=== PATIENT | male | born 1955 | race Caucasian/White ===

== ENCOUNTER 2016-03-29 05:05 | Emergency (ER) | payer MEDICARE ==
[2016-03-29 05:16] VITALS: BP 148/74
--- NOTE | 2016-03-29 06:27 | ER Document Report ---
ED Extremity Problem, Upper - General Mode of Arrival: Ambulatory Information source: Patient TRAVEL OUTSIDE OF THE [place] IN LAST 30 DAYS: No - HPI Patient complains to provider of: Left, Elbow, Forearm Onset: Other - 2 days ago Associated symptoms: Other - see above - General Chief Complaint: Arm Pain Stated Complaint: RIGHT ARM PAIN Notes: 60 year old male presents to the ED complaining of left arm pain that started 2 days ago. Patient explains that the pain starts in his left elbow and radiates into his lateral forearm. Patient states he has used Aspirin to no relief, but explains that Icy Hot and a heating pad have given him minimal relief. Patient states that he was waken from his sleep at 03:30 this morning in excruciating pain and was unable to straighten his arm out. Patient states that he it feels like there are "a couple of knots" in his left elbow. Patient admits to doing some light work on Thursday scraping paint off a car. Patient denies any injury to his left arm. Patient's orthopedist is Dr. Gillespie. (NOVA MORRIS) - Related Data Allergies/Adverse Reactions: promethazine HCl [From Phenergan] Allergy (Severe, Verified 03/29/16 05:09) Shortness of Breath Past Medical History - General Information source: Patient - Social History Smoking Status: Former Smoker Chew tobacco use (# tins/day): No Frequency of alcohol use: None Drug Abuse: None Family History: Reviewed & Not Pertinent Patient has suicidal ideation: No Patient has homicidal ideation: No - Past Medical History Cardiac Medical History: Reports: Hx Hypercholesterolemia, Hx Hypertension - 3 years-takes meds, Hx Heart Murmur - "comes and goes" Pulmonary Medical History: Reports: Hx Asthma - inhalers, Hx Bronchitis, Hx COPD , Hx Pneumonia - 10 yrs ago Neurological Medical History: Endocrine Medical History: Reports: Hx Diabetes Mellitus Type 2 Renal/ Medical History: Reports: Hx Benign Prostatic Hyperplasia, Hx Renal Insufficiency GI Medical History: Reports: Hx Gastroesophageal Reflux Disease - 16 years- takes meds Musculoskeltal Medical History: Reports Hx Arthritis - generalized Psychiatric Medical History: Reports: Hx Anxiety Traumatic Medical History: Reports: Hx Fractures - tailbone, lower back/ vertebrae Past Surgical History: Reports: Hx Cholecystectomy, Hx Herniorrhaphy - right inguinal hernia repair with mesh 2015, Hx Orthopedic Surgery - Right Knee replacement - Immunizations Hx Diphtheria, Pertussis, Tetanus Vaccination: Yes Review of Systems - Review of Systems Constitutional: No symptoms reported EENT: No symptoms reported Cardiovascular: No symptoms reported Respiratory: No symptoms reported Gastrointestinal: No symptoms reported Genitourinary: No symptoms reported Male Genitourinary: No symptoms reported Musculoskeletal: See HPI, Joint pain - left elbow and forearm, Other - difficulty extending his left arm Skin: No symptoms reported Hematologic/Lymphatic: No symptoms reported Neurological/Psychological: No symptoms reported -: Yes All other systems reviewed and negative Physical Exam - Vital signs Interpretation: Normal - General General appearance: Alert In distress: None - HEENT Head: Normocephalic, Atraumatic Eyes: Normal Extraocular movements intact: Yes Pupils: PERRL - Respiratory Respiratory status: No respiratory distress Breath sounds: Rhonchi - bilateral, Wheezing - bilateral - Cardiovascular Rhythm: Regular - Abdominal Inspection: Normal - Back Back: Normal - Extremities General upper extremity: No: Normal inspection - see elbow exam below General lower extremity: Normal inspection, Normal ROM Elbow: Tender - Left lateral humeral epicondyle. Pain is worsened if extending left wrist. Circumferential pressure around the left forearm enables patient to extend left wrist with minimal pain., Other - left lateral humeral epicondyle swelling. No: Normal - Neurological Neuro grossly intact: Yes - Psychological Associated symptoms: Normal affect, Normal mood - Skin Skin Temperature: Warm Skin Moisture: Dry Skin Color: Normal Course - Re-evaluation Re-evalutation: 03/29/16 07:30 Sling was placed on the left upper extremity by the nurse. It provide support for his arm and elbow amounts and to relax the muscles. He was again instructed to get a tennis elbow strap, use moist heat, but the extremity rest. He was mistakenly thinking that taking NSAIDs were okay, but he should not take Tylenol because of his renal insufficiency. He was also requesting pain medication. I pointed out that he takes 3-47.5 mg Percocets on a daily basis for many many months and should have plenty of medication left since the last time he filled his prescription. I have pointed out that the Percocets have Tylenol and Tylenol is not contraindicated and renal insufficiency. I further explained to him that the aspirin and Motrin he takes is contraindicated and would be harmful to his kidneys so he should stop taking drugs such as aspirin, Motrin, and Aleve. He should follow-up with his doctor to review these instructions and get clarification for his misunderstanding. (SWATHI SCOTT) - Vital Signs Vital signs: Temp Pulse Resp BP Pulse Ox 97.5 F 64 18 148/74 H 97 03/29/16 05:11 03/29/16 05:11 03/29/16 05:11 03/29/16 05:11 03/29/16 05:11 (NOVA MORRIS) (SWATHI SCOTT) Discharge - Discharge Clinical Impression: Epicondylitis, lateral humeral Qualifiers: Laterality: left Qualified Code(s): M77.12 - Lateral epicondylitis, left elbow Condition: Stable Disposition: HOME, SELF-CARE Additional Instructions: Tennis Elbow (Lateral Epicondylitis): You have lateral epicondylitis of the elbow, also called tennis elbow. This is a tendonitis at the point where the top-side forearm muscles attach to the outer side of the elbow. This is caused by repeated minor trauma or overuse , often during racquet sports or repetitive manual labor. In tennis, a faulty backhand stroke is usually the cause. Treat the tendonitis with antiinflammatory pain medication. Apply warmth to the area for 15 to 20 minutes, about 4 times a day. A wrap or "tennis elbow brace" that compresses the area may help. Steroid injections or surgery are occasionally required for severe cases that don't heal. Avoid or limit any activity that aggravates the pain. Stop racquet sports and golf for 4 to 6 weeks. Tennis players should make sure that they have a proper backhand after the injury heals. Return if you develop worsening pain, loss of mobility in the elbow, severe swelling, or numbness or weakness in the arm. USE THE SLING. TAKE THE MEDICATION PRESCRIBED--START THE PREDNISONE TOMORROW(THURSDAY). DRINK PLENTY OF WATER. GET A "TENNIS ELBOW" STRAP. CALL DR. GILLESPIE Thursday FOR AN APPOINTMENT. Prescriptions: Prednisone 10 mg PO TID #10 tablet Referrals: DORETHA ARECHIGA MD [Primary Care Provider] - Follow up as needed MADDIE GILLESPIE MD [ACTIVE STAFF] - 03/31/16 (call Thursday for an appointment) Scribe Attestation: 03/29/16 06:36 I personally performed the services described in the documentation, reviewed and edited the documentation which was dictated to the scribe in my presence, and it accurately records my words and actions. (SWATHI SCOTT) Scribe Documentation - Scribe Written by Christiano:: Christiano Palomo, 03/29/2016 06:57 acting as scribe for :: Vinita
[2016-03-29] MEDS ORDERED: PREDNISONE 20 MG TABLET PO ONE (06:32)
== END 2016-03-29 07:03 | disposition home or self-care (01) ==
LOC: ER 05:05
DX: M77.12 Lateral epicondylitis, left elbow (principal); M79.602 Pain in left arm; E78.00 Pure hypercholesterolemia, unspecified; I10 Essential (primary) hypertension; E11.9 Type 2 diabetes mellitus without complications; Z96.651 Presence of right artificial knee joint
CPT/HCPCS: 99283; A9270; J7512

== ENCOUNTER 2017-10-27 13:27 | Emergency (ER) | payer MEDICARE, MEDICAID ==
--- NOTE | 2017-10-27 14:52 | ER Document Report ---
ED Medical Screen (RME) - General Chief Complaint: Abdominal Pain Stated Complaint: VOMITING Time Seen by Provider: 10/27/17 14:11 TRAVEL OUTSIDE OF THE [place] IN LAST 30 DAYS: No - HPI Notes: 10/27/17 14:52 History of umbilical hernia coming a day for nausea vomiting diarrhea increased pain and hernia sac. - Related Data Allergies/Adverse Reactions: promethazine HCl [From Phenergan] Allergy (Severe, Verified 03/29/16 05:09) Shortness of Breath Past Medical History - Social History Chew tobacco use (# tins/day): No Frequency of alcohol use: None Drug Abuse: None - Past Medical History Cardiac Medical History: Reports: Hx Hypercholesterolemia, Hx Hypertension - 3 years-takes meds, Hx Heart Murmur - "comes and goes" Denies: Hx Atrial Fibrillation, Hx Congestive Heart Failure, Hx Coronary Artery Disease, Hx Heart Attack, Hx Peripheral Vascular Disease, Hx Pulmonary Embolism Pulmonary Medical History: Reports: Hx Asthma - inhalers, Hx Bronchitis, Hx COPD , Hx Pneumonia - 10 yrs ago Denies: Hx Respiratory Failure, Hx Sleep Apnea, Hx Tuberculosis Neurological Medical History: Endocrine Medical History: Reports: Hx Diabetes Mellitus Type 2. Denies: Hx Graves' Disease, Hx Hyperthyroidism, Hx Hypothyroidism Renal/ Medical History: Reports: Hx Benign Prostatic Hyperplasia, Hx Renal Insufficiency. Denies: Hx End Stage Renal Disease, Hx Kidney Stones, Hx Peritoneal Dialysis Malignancy Medical History: Denies Hx Lung Cancer GI Medical History: Reports: Hx Gastroesophageal Reflux Disease - 16 years- takes meds. Denies: Hx Crohn's Disease, Hx Hiatal Hernia, Hx Irritable Bowel, Hx Liver Failure - hepatitis c, Hx Pancreatitis, Hx Ulcer Musculoskeltal Medical History: Reports Hx Arthritis - generalized, Denies Hx Fibromyalgia, Denies Hx Muscular Dystrophy Psychiatric Medical History: Reports: Hx Anxiety Denies: Hx Bipolar Disorder, Hx Depression, Hx Post Traumatic Stress Disorder , Hx Schizophrenia Traumatic Medical History: Reports: Hx Fractures - tailbone, lower back/ vertebrae Past Surgical History: Reports: Hx Cholecystectomy, Hx Herniorrhaphy - right inguinal hernia repair with mesh 2015, Hx Orthopedic Surgery - Right Knee replacement. Denies: Hx Appendectomy, Hx Bowel Surgery, Hx Colostomy, Hx Coronary Artery Bypass Graft, Hx Gastric Bypass Surgery, Hx Pacemaker, Hx Tonsillectomy - Immunizations Hx Diphtheria, Pertussis, Tetanus Vaccination: Yes Review of Systems - Review of Systems Gastrointestinal: Abdominal pain, Diarrhea, Nausea Physical Exam - Vital signs Vitals: Temp Pulse Resp BP Pulse Ox 98.1 F 61 18 149/81 H 98 10/27/17 13:40 10/27/17 13:40 10/27/17 13:40 10/27/17 13:40 10/27/17 13:40 - Respiratory Respiratory status: No respiratory distress Chest status: Nontender Breath sounds: Normal Chest palpation: Normal Course - Vital Signs Vital signs: Temp Pulse Resp BP Pulse Ox 98.1 F 61 18 149/81 H 98 10/27/17 13:40 10/27/17 13:40 10/27/17 13:40 10/27/17 13:40 10/27/17 13:40 - Laboratory Result Diagrams: 10/27/17 14:38 10/27/17 14:38 Doctor's Discharge - Discharge Referrals: DORETHA ARECHIGA MD [Primary Care Provider] - Follow up as needed
[2017-10-27 14:58] LABS: ABSOLUTE EOSINOPHILS # (AUTO) 0.3 10^3/uL (0.0-0.6); ABSOLUTE LYMPHOCYTES (AUTO) 1.3 10^3/uL (0.5-4.7); ABSOLUTE MONOCYTES (AUTO) 0.5 10^3/uL (0.1-1.4); ABSOLUTE NEUT (AUTO) 2.9 10^3/uL (1.7-8.2); BASOPHILS % (AUTO) 0.5 % (0-2); EOSINOPHILS % (AUTO) 6.1 % (0-6); HEMATOCRIT 39.2 % (37.9-51.0); HEMOGLOBIN 13.7 g/dL (13.5-17.0); LYMPHOCYTES % (AUTO) 26.4 % (13-45); MEAN CORPUSCULAR HEMOGLOBIN 31.1 pg (27.0-33.4); MEAN CORPUSCULAR HGB CONC 34.9 g/dL (32.0-36.0); MEAN CORPUSCULAR VOLUME 89 fl (80-97); MONOCYTES % (AUTO) 9.3 % (3-13); PLATELET COUNT 170 10^3/uL (150-450); SEGMENTED NEUTROPHILS % (AUTO) 57.7 % (42-78); TOTAL CELLS COUNTED % (AUTO) 100 %
[2017-10-27 15:14] LABS: ANION GAP 12 (5-19); BLOOD UREA NITROGEN 25 mg/dL (7-20); CALCIUM 9.1 mg/dL (8.4-10.2); CARBON DIOXIDE 21 mmol/L (22-30); CHLORIDE 111 mmol/L (98-107); GLUCOSE 181 mg/dL (75-110); POTASSIUM 4.6 mmol/L (3.6-5.0); SODIUM 144.3 mmol/L (137-145)
[2017-10-27] MEDS ORDERED: HYDROMORPHONE HCL INJ/PF 2 MG/ML AMPULE IV ONE (15:32)
[2017-10-27] MEDS ORDERED: ONDANSETRON HCL INJ/PF 4 MG/2 ML SDV IV ONE (15:32)
[2017-10-27] MEDS ORDERED: NORMAL SALINE 1000 ML 1,000 ML IV ONE (15:33)
--- NOTE | 2017-10-27 15:36 | ER Document Report ---
ED General - General Chief Complaint: Abdominal Pain Stated Complaint: VOMITING Time Seen by Provider: 10/27/17 14:11 Mode of Arrival: Ambulatory Information source: Patient, Relative, Dr. Mahajan, [facility] Records Notes: 62-year-old male with hypertension, hyperlipidemia, COPD, chronic kidney disease , type 2 diabetes presents from his primary care physician's office with complaint of periumbilical abdominal pain that has been present intermittently for 1 month but worsened this morning. Patient has a known umbilical hernia for which she has seen his primary care physician for previously. He states it has never caused him this much pain. He describes it as a constant burning pain that is worse with standing and moving. Patient has had associated nausea and 2 episodes of vomiting this morning. His last bowel movement was this morning and denies any black or bloody stools. Patient has a surgical history of cholecystectomy and inguinal hernia repair. Patient recently went on a weeklong fishing trip and states that he did do a lot of heavy lifting at that time. He denies any sick contacts. TRAVEL OUTSIDE OF THE [place] IN LAST 30 DAYS: No - HPI Onset: Other - Patient has had mild periumbilical pain for 1 month with worsening of pain this morning Onset/Duration: Gradual, Persistent, Worse Quality of pain: Burning Severity: Moderate Associated symptoms: Chills, Nausea, Vomiting. denies: Chest pain, Nonproductive cough, Diarrhea, Fever, Weakness Exacerbated by: Movement, Walking Relieved by: Remaining still Similar symptoms previously: Yes Recently seen / treated by doctor: Yes - PCP this morning - Related Data Allergies/Adverse Reactions: promethazine HCl [From Phenergan] Allergy (Severe, Verified 03/29/16 05:09) Shortness of Breath Past Medical History - General Information source: Patient, Relative, Dr. Mahajan, [facility] Records, Outside Facility Records - Social History Smoking Status: Current Every Day Smoker Chew tobacco use (# tins/day): No Smoking Education Provided: Yes Frequency of alcohol use: None Drug Abuse: None Lives with: Spouse/Significant other Family History: Reviewed & Not Pertinent Patient has suicidal ideation: No Patient has homicidal ideation: No - Past Medical History Cardiac Medical History: Reports: Hx Hypercholesterolemia, Hx Hypertension - 3 years-takes meds, Hx Heart Murmur - "comes and goes" Denies: Hx Atrial Fibrillation, Hx Congestive Heart Failure, Hx Coronary Artery Disease, Hx Heart Attack, Hx Peripheral Vascular Disease, Hx Pulmonary Embolism Pulmonary Medical History: Reports: Hx Asthma - inhalers, Hx Bronchitis, Hx COPD , Hx Pneumonia - 10 yrs ago Denies: Hx Respiratory Failure, Hx Sleep Apnea, Hx Tuberculosis Neurological Medical History: Endocrine Medical History: Reports: Hx Diabetes Mellitus Type 2. Denies: Hx Graves' Disease, Hx Hyperthyroidism, Hx Hypothyroidism Renal/ Medical History: Reports: Hx Benign Prostatic Hyperplasia, Hx Renal Insufficiency. Denies: Hx End Stage Renal Disease, Hx Kidney Stones, Hx Peritoneal Dialysis Malignancy Medical History: Denies Hx Lung Cancer GI Medical History: Reports: Hx Gastroesophageal Reflux Disease - 16 years- takes meds. Denies: Hx Crohn's Disease, Hx Hiatal Hernia, Hx Irritable Bowel, Hx Liver Failure - hepatitis c, Hx Pancreatitis, Hx Ulcer Musculoskeletal Medical History: Reports Hx Arthritis - generalized, Denies Hx Fibromyalgia, Denies Hx Muscular Dystrophy Psychiatric Medical History: Reports: Hx Anxiety Denies: Hx Bipolar Disorder, Hx Depression, Hx Post Traumatic Stress Disorder , Hx Schizophrenia Traumatic Medical History: Reports: Hx Fractures - tailbone, lower back/ vertebrae Past Surgical History: Reports: Hx Cholecystectomy, Hx Herniorrhaphy - right inguinal hernia repair with mesh 2015, Hx Orthopedic Surgery - Right Knee replacement. Denies: Hx Appendectomy, Hx Bowel Surgery, Hx Colostomy, Hx Coronary Artery Bypass Graft, Hx Gastric Bypass Surgery, Hx Pacemaker, Hx Tonsillectomy - Immunizations Hx Diphtheria, Pertussis, Tetanus Vaccination: Yes Review of Systems - Review of Systems Notes: REVIEW OF SYSTEMS: CONSTITUTIONAL : Denies fever, sweats. Denies recent illness. Denies weight loss, recent hospitalizations. EENT: Denies visual changes, eye pain. Denies nasal or sinus congestion or discharge. Denies sore throat, oral lesions, difficulty swallowing. CARDIOVASCULAR: Denies chest pain. Denies palpitations. Denies lower extremity edema. RESPIRATORY: Denies cough, cold, or chest congestion. Denies shortness of breath, wheezing. GASTROINTESTINAL: Denies diarrhea. Denies blood in vomitus, stools, or per rectum. Denies black, tarry stools. Denies constipation. GENITOURINARY: Denies difficulty urinating, painful urination, frequency, blood in urine, or vaginal discharge. MUSCULOSKELETAL: Denies back or neck pain or stiffness. Denies joint pain or swelling. SKIN: Denies rash, lesions or sores. HEMATOLOGIC : Denies easy bruising or bleeding. LYMPHATIC: Denies swollen glands. NEUROLOGICAL: Denies confusion or altered mental status. Denies passing out or loss of consciousness. Denies dizziness or lightheadedness. Denies headache. Denies weakness or paralysis. Denies problems difficulty with ambulation, slurred speech. Denies sensory loss, numbness, or tingling. Denies seizures. PSYCHIATRIC: Denies anxiety or stress. Denies depression, suicidal ideation, or homicidal ideation. Denies visual or auditory hallucinations. Physical Exam - Vital signs Vitals: Temp Pulse Resp BP Pulse Ox 98.1 F 61 18 149/81 H 98 10/27/17 13:40 10/27/17 13:40 10/27/17 13:40 10/27/17 13:40 10/27/17 13:40 Interpretation: Hypertensive. No: Febrile - Notes Notes: PHYSICAL EXAMINATION: GENERAL: Well-appearing, well-nourished and in no acute distress. HEAD: Atraumatic, normocephalic. EYES: Pupils equal round and reactive to light, extraocular movements intact, sclera anicteric, conjunctiva are normal. ENT: Nares patent, oropharynx clear without exudates. Moist mucous membranes. NECK: Normal range of motion, supple without lymphadenopathy LUNGS: Breath sounds clear to auscultation bilaterally and equal. No wheezes rales or rhonchi. HEART: Regular rate and rhythm without murmurs ABDOMEN: Abdominal distention, tenderness to palpation in the periumbilical region. Small reducible umbilical hernia. Hyperactive bowel sounds. Musculoskeletal: Normal range of motion, no pitting or edema. No cyanosis. NEUROLOGICAL: Cranial nerves grossly intact. Normal speech, normal gait. Normal sensory, motor exams PSYCH: Normal mood, normal affect. SKIN: Warm, Dry, normal turgor, no rashes or lesions noted. Course - Re-evaluation Re-evalutation: Laboratory 10/27/17 10/27/17 10/27/17 14:38 14:38 14:38 WBC 5.0 RBC 4.40 Hgb 13.7 Hct 39.2 MCV 89 MCH 31.1 MCHC 34.9 RDW 14.0 Plt Count 170 Seg Neutrophils % 57.7 Lymphocytes % 26.4 Monocytes % 9.3 Eosinophils % 6.1 H Basophils % 0.5 Absolute Neutrophils 2.9 Absolute Lymphocytes 1.3 Absolute Monocytes 0.5 Absolute Eosinophils 0.3 Absolute Basophils 0.0 Sodium 144.3 Potassium 4.6 Chloride 111 H Carbon Dioxide 21 L Anion Gap 12 BUN 25 H Creatinine 1.99 H Est GFR ( Amer) 41 L Est GFR (Non-Af Amer) 34 L Glucose 181 H Lactic Acid 1.2 Calcium 9.1 Abdomen/Pelvis CT 10/27/17 14:17 IMPRESSION: 1. Mild wall thickening in the sigmoid colon may reflect colitis. Nonspecific. Some of this could be artifact. 2. Wall thickening in the distal esophagus, nonspecific. Correlate with symptoms. 3. Splenomegaly. 10/28/17 15:12 62-year-old male with hypertension, hyperlipidemia, COPD, chronic kidney disease , type 2 diabetes presents from his primary care physician's office with complaint of periumbilical abdominal pain that has been present intermittently for 1 month but worsened this morning. Patient has a known umbilical hernia for which she has seen his primary care physician for previously. He states it has never caused him this much pain. He describes it as a constant burning pain that is worse with standing and moving. Patient has had associated nausea and 2 episodes of vomiting this morning. His last bowel movement was this morning and denies any black or bloody stools. Patient has a surgical history of cholecystectomy and inguinal hernia repair. Patient recently went on a weeklong fishing trip and states that he did do a lot of heavy lifting at that time. He denies any sick contacts. Patient was seen by myself upon arrival. Vital signs were reviewed. Patient is afebrile, normotensive and not hypoxic. Patient does not appear toxic or dehydrated. They are in no acute distress. Previous medical records and nursing notes reviewed. Patient has a an essentially benign abdominal M. CBC, BMP, lactic acid all within normal limits. CT consistent with colitis and not strangulated or incarcerated hernia. I did recommend clear fluids for the next 24 hours. I did provide the patient antibiotics although I do not believe this is an infectious source of colitis. I did ask him to hold off on the antibiotics for 48 hours to see if pain improved. Patient did receive IV fluids, Zofran, Dilaudid during his ED course. He reports a great improvement of pain prior to discharge. He is tolerating fluids prior to discharge. Patient provided the opportunity to ask questions, and express concerns. Discharge instructions discussed. Patient is agreeable with discharge home. Return indications explained and discussed with the patient who displays understanding. Patient encouraged to return to the emergency department immediately with any concerns. After performing a Medical Screening Examination, I estimate there is LOW risk for ACUTE APPENDICITIS, BOWEL OBSTRUCTION, ACUTE CHOLECYSTITIS, PERFORATED DIVERTICULITIS, INCARCERATED HERNIA, PANCREATITIS, thus I consider the discharge disposition reasonable. Also , there is no evidence or peritonitis, sepsis, or toxicity. I have reevaluated this patient multiple times and no significant life threatening changes are noted. The patient and I have discussed the diagnosis and risks, and we agree with discharging home with close follow-up with the understanding that symptoms and presentations can change. We also discussed returning to the Emergency Department immediately if new or worsening symptoms occur. We have discussed the symptoms which are most concerning (e.g., bloody stool, fever, changing or worsening pain, intractable vomiting - standard verbal up date) that necessitate immediate return. - Vital Signs Vital signs: Temp Pulse Resp BP Pulse Ox 97.7 F 59 L 18 156/116 H 98 10/27/17 19:18 10/27/17 19:18 10/27/17 19:18 10/27/17 19:18 10/27/17 19:18 - Laboratory Result Diagrams: 10/27/17 14:38 10/27/17 14:38 Laboratory results interpreted by me: 10/27/17 10/27/17 14:38 14:38 Eosinophils % 6.1 H Chloride 111 H Carbon Dioxide 21 L BUN 25 H Creatinine 1.99 H Est GFR ( Amer) 41 L Est GFR (Non-Af Amer) 34 L Glucose 181 H - Diagnostic Test Radiology reviewed: Image reviewed, Reports reviewed Discharge - Discharge Clinical Impression: Colitis Abdominal pain Qualifiers: Abdominal location: periumbilical Qualified Code(s): R10.33 - Periumbilical pain Umbilical hernia Qualifiers: Obstruction and gangrene presence: without obstruction or gangrene Qualified Code(s): K42.9 - Umbilical hernia without obstruction or gangrene CKD (chronic kidney disease) Qualifiers: Chronic kidney disease stage: unspecified stage Qualified Code(s): N18.9 - Chronic kidney disease, unspecified Condition: Good Disposition: HOME, SELF-CARE Instructions: Abdominal Pain ([facility]), Colitis, Nonspecific ([facility]), Nausea or Vomiting, Nonspecific ([facility]), Umbilical Hernia ([facility]) Additional Instructions: Colitis, Nonspecific Colitis is an inflammatory disease of the large intestine which affects the lining of the bowel. The cause is uncertain, though it is often caused by an infection. In some cases, the symptoms resolve and can return again in the future. Colitis is characterized by abdominal pain, often nausea and vomiting, and either diarrhea or difficulty with bowel movements. Sometimes blood will be present in the bowel movements. Fever is often present as well. Milder cases of colitis can be managed as an outpatient with medications for nausea and vomiting and pain, oral fluid therapy, and perhaps antibiotics, if a bacterial origin is suspected. Antidiarrhea medicine should usually be avoided in colitis. If you have increasing abdominal pain, repeated vomiting, fever, rectal bleeding, or worsening diarrhea, you should return for re-evaluation. Prescriptions: Ciprofloxacin HCl [Cipro 500 mg Tablet] 500 mg PO BID #20 tablet Hydrocodone/Acetaminophen [Tracy 5-325 mg Tablet] 1 tab PO Q6H #10 tablet Metoclopramide HCl [Reglan 10 mg Tablet] 1 tab PO Q8H PRN #10 tablet PRN Reason: Metronidazole [Flagyl 500 mg Tablet] 500 mg PO BID #14 tablet Forms: Elevated Blood Pressure Referrals: DORETHA ARECHIGA MD [Primary Care Provider] - Follow up as needed
--- NOTE | 2017-10-27 17:48 | RADIOLOGY REPORT (SQ) ---
EXAM DESCRIPTION: CT ABD/PELVIS ORAL ONLY COMPLETED DATE/TIME: 10/27/2017 5:34 pm REASON FOR STUDY: umbilical hernia pain COMPARISON: None. TECHNIQUE: CT scan of the abdomen and pelvis performed with oral contrast and no intravenous contras t. Images reviewed with lung, soft tissue, and bone windows. Reconstructed coronal and sagittal MPR i mages reviewed. All images stored on PACS. All CT scanners at this facility use dose modulation, iterative reconstruction, and/or weight based d osing when appropriate to reduce radiation dose to as low as reasonably achievable (ALARA). [facility]: Dose Right [facility]: CareDose [facility]: Dose Right [facility]: Teradose 4D [facility]: [employer] RADIATION DOSE: CT Rad equipment meets quality standard of care and radiation dose reduction techniq ues were employed. CTDIvol: 15.9 mGy. DLP: 879 mGy-cm.mGy. LIMITATIONS: None. FINDINGS: LOWER CHEST: Slightly thickened appearance of the distal thoracic esophagus with small hia janice hernia. No acute or suspicious lung base changes. NON-CONTRASTED LIVER, SPLEEN, ADRENALS: Generally unremarkable liver. Calcified granulomas in the sp lilliam, which is enlarged. Just at 15 cm craniocaudal. No adrenal mass. PANCREAS: No masses. No peripancreatic inflammatory changes. GALLBLADDER: Surgically absent. RIGHT KIDNEY AND URETER: No solid masses. No significant calcification. No hydronephrosis or hydroure ter. LEFT KIDNEY AND URETER: No solid masses. No significant calcification. No hydronephrosis or hydrouret er. AORTA AND RETROPERITONEUM: No aneurysm. No retroperitoneal masses or adenopathy. BOWEL AND PERITONEAL CAVITY: Mild wall thickening in the sigmoid colon. Potentially artifact. No re gional diverticulosis. No associated inflammatory fat stranding or fluid. No evidence of mechanical bowel obstruction. No ascites or abnormal gas. APPENDIX: Normal. PELVIS, BLADDER, AND ABDOMINAL WALL: No abnormal pelvic masses. No bowel containing abdominal wall he rnias. Minimal fat containing periumbilical hernia. No abdominal wall mass. Bladder unremarkable. BONES: No significant findings. OTHER: No other significant finding. IMPRESSION: 1. Mild wall thickening in the sigmoid colon may reflect colitis. Nonspecific. Some o f this could be artifact. 2. Wall thickening in the distal esophagus, nonspecific. Correlate with symptoms. 3. Splenomegaly. TECHNICAL DOCUMENTATION: JOB ID: [id number] Quality ID # [id number]: Final reports with documentation of one or more dose reduction techniques (e.g., Au tomated exposure control, adjustment of the mA and/or kV according to patient size, use of iterative reconstruction technique) 2010 [employer]- All Rights Reserved Reading location - IP/workstation name: [email or web address]
[2017-10-27] MEDS ORDERED: KETOROLAC TROMETHAMINE INJ/PF 30 MG/1 ML SDV IV ONE (18:00)
[2017-10-27 19:19] VITALS: BP 156/116
== END 2017-10-27 19:19 | disposition home or self-care (01) ==
LOC: ER 13:27
DX: K52.9 Noninfective gastroenteritis and colitis, unspecified (principal); K42.9 Umbilical hernia without obstruction or gangrene; R10.33 Periumbilical pain; I12.9 Hypertensive chronic kidney disease with stage 1 through stage 4 chronic kidney disease, or unspecified chronic kidney disease; N18.9 Chronic kidney disease, unspecified; E78.5 Hyperlipidemia, unspecified; J44.9 Chronic obstructive pulmonary disease, unspecified; E11.9 Type 2 diabetes mellitus without complications; R11.2 Nausea with vomiting, unspecified; F17.200 Nicotine dependence, unspecified, uncomplicated
CPT/HCPCS: 99284; 96361; 96374; 96375; 36415; 85025; 80048; 83605; 74176; J1170; J2405; J7030

== ENCOUNTER 2018-03-18 08:59 | Emergency (ER) | payer MEDICARE, MEDICAID ==
--- NOTE | 2018-03-18 09:17 | ER Document Report ---
HPI - HPI Patient complains to provider of: r elbow injury Time Seen by Provider: 03/18/18 09:11 Onset: Other - 2 days Onset/Duration: Persistent Quality of pain: Achy Pain Level: 3 Context: Patient states that he was at work and his hand slipped causing his elbow to fall back into the jam of a door. Patient complains of persistent right elbow tenderness with swelling. Patient complains of pain with range of motion. Associated Symptoms: Other - r elbow injury Exacerbated by: Movement Relieved by: Denies Similar symptoms previously: No Recently seen / treated by doctor: No - ROS ROS below otherwise negative: Yes Systems Reviewed and Negative: Yes All other systems reviewed and negative - CONSTITUTIONAL Constitutional: DENIES: Fever - NEURO Neurology: DENIES: Weakness - GASTROINTESTINAL Gastrointestinal: DENIES: Nausea - REPRODUCTIVE Reproductive: DENIES: : - MUSCULOSKELETAL Musculoskeletal: REPORTS: Extremity pain, Swelling - DERM Skin Color: Normal Skin Problems: None Past Medical History - General Information source: Patient - Social History Smoking Status: Current Every Day Smoker Smoking Education Provided: Yes Frequency of alcohol use: None Drug Abuse: None Occupation: none Family History: Reviewed & Not Pertinent - Past Medical History Cardiac Medical History: Reports: Hx Hypercholesterolemia, Hx Hypertension - 3 years-takes meds, Hx Heart Murmur - "comes and goes" Pulmonary Medical History: Reports: Hx Asthma - inhalers, Hx Bronchitis, Hx COPD, Hx Pneumonia - 10 yrs ago Neurological Medical History: Endocrine Medical History: Reports: Hx Diabetes Mellitus Type 2 Renal/ Medical History: Reports: Hx Benign Prostatic Hyperplasia, Hx Renal Insufficiency. Denies: Hx End Stage Renal Disease, Hx Kidney Stones, Hx Peritoneal Dialysis Malignancy Medical History: Denies Hx Lung Cancer GI Medical History: Reports: Hx Gastroesophageal Reflux Disease - 16 years-takes meds Musculoskeletal Medical History: Reports Hx Arthritis - generalized Psychiatric Medical History: Reports: Hx Anxiety Traumatic Medical History: Reports: Hx Fractures - tailbone, lower back/vertebrae Past Surgical History: Reports: Hx Cholecystectomy, Hx Herniorrhaphy - right inguinal hernia repair with mesh 2015, Hx Orthopedic Surgery - Right Knee replacement - Immunizations Hx Diphtheria, Pertussis, Tetanus Vaccination: Yes Vertical Provider Document - CONSTITUTIONAL Agree With Documented VS: Yes Exam Limitations: No Limitations General Appearance: WD/WN, No Apparent Distress - INFECTION CONTROL TRAVEL OUTSIDE OF THE [place] IN LAST 30 DAYS: No - HEENT HEENT: Atraumatic, Normocephalic - NECK Neck: Normal Inspection - RESPIRATORY Respiratory: No Respiratory Distress - CARDIOVASCULAR Pulses: Normal: Radial - MUSCULOSKELETAL/EXTREMETIES Musculoskeletal/Extremeties: MAEW, FROM, Tender - Right elbow tenderness over radial head, no edema or deformity, No Edema. negative: Eccymosis - NEURO Level of Consciousness: Awake, Alert, Appropriate Motor/Sensory: No Motor Deficit - DERM Integumentary: Warm, Dry, No Rash Course - Vital Signs Vital signs: Temp Pulse Resp BP Pulse Ox 97.5 F 68 18 165/83 H 98 03/18/18 09:10 03/18/18 09:10 03/18/18 09:10 03/18/18 09:10 03/18/18 09:10 - Diagnostic Test Radiology reviewed: Image reviewed, Reports reviewed Procedures - Immobilization Right Elbow Pre-Proc Neuro Vasc Exam: Normal Immobilizer type: Long arm posterior, Sling Performed by: PCT Post-Proc Neuro Vasc Exam: Normal Alignment checked and good: Yes Discharge - Discharge Clinical Impression: Radial head fracture Qualifiers: Encounter type: initial encounter Fracture type: closed Fracture alignment: nondisplaced Laterality: right Qualified Code(s): S52.124A - Nondisplaced fracture of head of right radius, initial encounter for closed fracture Condition: Stable Disposition: HOME, SELF-CARE Instructions: Ice & Elevation ([facility]), Radial Head Fracture ([facility]), Sling to be Used ([facility]), Splint Precautions ([facility]) Additional Instructions: Return immediately for any new or worsening symptoms Followup with your primary care provider, call tomorrow to make a followup appointment Follow-up with orthopedics for further evaluation, call today for an appointment Forms: Smoking Cessation Education Referrals: DORETHA ARECHIGA MD [Primary Care Provider] - Follow up as needed [facility] [Provider Group] - Follow up tomorrow
--- NOTE | 2018-03-18 10:30 | RADIOLOGY REPORT (SQ) ---
EXAM DESCRIPTION: ELBOW RIGHT OVER 2 VIEWS COMPLETED DATE/TIME: 03/18/2018 10:22 am REASON FOR STUDY: fall COMPARISON: None. NUMBER OF VIEWS: Four views. TECHNIQUE: AP, lateral, and both oblique radiographic images acquired of the right elbow. LIMITATIONS: None. FINDINGS: MINERALIZATION: Normal. BONES: No fracture identified. JOINT: Joint effusion. SOFT TISSUES: No foreign body. OTHER: No other significant finding. IMPRESSION: Joint effusion. Suspect occult radial head fracture. TECHNICAL DOCUMENTATION: JOB ID: [id number] [employer]- All Rights Reserved Reading location - IP/workstation name: [email or web address]
[2018-03-18 11:24] VITALS: BP 161/93
== END 2018-03-18 11:24 | disposition home or self-care (01) ==
LOC: ER 08:59
DX: S52.124A Nondisplaced fracture of head of right radius, initial encounter for closed fracture (principal); W22.09XA Striking against other stationary object, initial encounter; Y99.0 Civilian activity done for income or pay; F17.200 Nicotine dependence, unspecified, uncomplicated; E78.00 Pure hypercholesterolemia, unspecified; I10 Essential (primary) hypertension; E11.9 Type 2 diabetes mellitus without complications; Z90.49 Acquired absence of other specified parts of digestive tract; Z96.651 Presence of right artificial knee joint
CPT/HCPCS: 99283

== ENCOUNTER 2018-09-22 12:44 | Day surgery (SDC) | payer MEDICARE, MEDICAID ==
[2018-09-20 09:06] LABS: HEMATOCRIT 36.3 % (37.9-51.0); HEMOGLOBIN 12.5 g/dL (13.5-17.0); MEAN CORPUSCULAR HEMOGLOBIN 31.7 pg (27.0-33.4); MEAN CORPUSCULAR HGB CONC 34.4 g/dL (32.0-36.0); MEAN CORPUSCULAR VOLUME 92 fl (80-97); PLATELET COUNT 137 10^3/uL (150-450); RED BLOOD COUNT 3.94 10^6/uL (4.35-5.55); RED CELL DISTRIBUTION WIDTH 13.4 % (11.5-14.0); WHITE BLOOD COUNT 5.5 10^3/uL (4.0-10.5)
[2018-09-20 09:37] LABS: BLOOD UREA NITROGEN 36 mg/dL (7-20); CALCIUM 8.8 mg/dL (8.4-10.2); GLUCOSE 168 mg/dL (75-110); POTASSIUM 5.7 mmol/L (3.6-5.0)
[2018-09-20 09:42] LABS: ANION GAP 6 (5-19); CARBON DIOXIDE 22 mmol/L (22-30); CHLORIDE 112 mmol/L (98-107); SODIUM 139.7 mmol/L (137-145)
--- NOTE | 2018-09-21 18:37 | EKG REPORT ---
SEVERITY:- OTHERWISE NORMAL ECG - SINUS RHYTHM LEFT AXIS DEVIATION : Confirmed by: Alexey Webb MD 21-Sep-2018 18:37:13
[~2018-09-22 12:44] MED LIST: ACETAMINOPHEN 325 MG TABLET PO PRN; ALBUTEROL SULFATE 0.083% NEB 2.5 MG/3 ML AMPUL NEB PRN; CEFAZOLIN 1 GM/D5W RTU 1 GM/50 ML RTUPB IV ONE; CEFAZOLIN 1 GM/D5W RTU 1 GM/50 ML RTUPB IV PRN; GLYCOPYRROLATE 1 MG/5 ML VIAL ONE; KETOROLAC TROMETHAMINE 60 MG/2 ML SDV ONE; LACTATED RINGERS 1000 ML IV PRN; LIDOCAINE 0.5% INJ-PF (5 MG/ML) 50 ML SDV SUBCUT PRN; LIDOCAINE 2% INJ-PF (20 MG/ML) 2 ML AMPUL ONE; METOCLOPRAMIDE HCL INJ/PF 10 MG/2 ML SDV ONE; NEOSTIGMINE METHYLSULFATE 10 MG/10 ML VIAL ONE; ONDANSETRON HCL INJ/PF 4 MG/2 ML SDV ONE; PHENYLEPHRINE HCL INJ/PF 10 MG/1 ML SDV ONE; PROPOFOL INJ 200 MG/20 ML VIAL IV ONE; ROCURONIUM BROMIDE INJ 50 MG/5 ML VIAL IV ONE; SUCCINYLCHOLINE CHLORIDE INJ 200 MG/10 ML VIAL ONE
[2018-09-22] MEDS ORDERED: MIDAZOLAM 2 MG/2 ML INJ ONE (13:13)
[2018-09-22] MEDS ORDERED: SUGAMMADEX SODIUM 200 MG/2 ML SDV IV ONE (13:13)
[2018-09-22] MEDS ORDERED: FENTANYL CITRATE INJ/PF 250 MCG/5 ML AMPULE ONE (13:13)
[2018-09-22] MEDS ORDERED: LIDOCAINE 2% INJ-PF (100 MG/5 ML) SYRINGE ONE (13:13)
[2018-09-22] MEDS ORDERED: ONDANSETRON HCL INJ/PF 4 MG/2 ML SDV ONE (13:13)
[2018-09-22] MEDS ORDERED: DEXAMETHASONE SOD PHOSPHATE INJ 4 MG/1 ML VIAL ONE (13:13)
[2018-09-22] MEDS ORDERED: BUPIVACAINE HCL 0.25 % INJ/PF (2.5 MG/1 ML) 30 ML VIAL ONE (14:42)
[2018-09-22] MEDS ORDERED: BUPIVACAINE HCL 0.25 % INJ/PF (2.5 MG/1 ML) 30 ML VIAL INJ ONE (15:48)
[2018-09-22] MEDS ORDERED: MORPHINE SULFATE 10 MG/ML INJ IV PRN (16:55)
[2018-09-22] MEDS ORDERED: FENTANYL CITRATE INJ/PF 100 MCG/2 ML AMPUL IV PRN ×3 (16:55)
[2018-09-22] MEDS ORDERED: DIPHENHYDRAMINE HCL 50 MG/ML VIAL IV PRN (16:55)
[2018-09-22] MEDS ORDERED: ONDANSETRON HCL INJ/PF 4 MG/2 ML SDV IV PRN (16:55)
[2018-09-22] MEDS ORDERED: MEPERIDINE HCL/PF INJ 25 MG/1 ML DISP.SYRIN IV PRN (16:55)
--- NOTE | 2018-09-22 17:19 | Discharge Summary ---
Discharge Summary (SDC) - Discharge Final Diagnosis: umbilical hernia Date of Surgery: 09/22/18 Discharge Date: 09/22/18 Condition: Good Treatment or Instructions: [facility] [address], [place] [address] Discharge Instructions: Laparoscopic Surgery 1. General Information: a. DO NOT DRIVE a car or operate dangerous machinery for 3-4 days or while taking narcotic pain pills. b. DO NOT consume alcohol, tranquilizers, sleeping medications or any non- prescribed medications for 24 hours unless approved by your doctor or as long as taking narcotic prescription medications. c. DO NOT make important decisions or sign any important papers for the first 24 hours after surgery. d. When discharged home the same day of surgery have a responsible person with you for the first night. 2. Activity Restrictions: 6 weeks. a. NO heavy lifting, straining abdominal muscles, bending over a lot, yard work, house work, or sports for [address] NOT drive for 3-4 days. c. It is fine to go for walks, up and down steps, ride in a car. d. Elevate your head when sleeping/resting. 3. Treatment: a. You may shower 24 hours after surgery, no baths or swimming for 2 weeks. Remove band-aids or dressings before shower but leave paper strips (steri- strips) on the skin to fall off on their own. If still on at postoperative visit they will be removed then. b. Drainage of fluid or blood is not unusual from an incision. If occurs, you can clean with peroxide and cotton ball daily and cover with dry gauze until the wound seals. c. If a lot of bleeding occurs, you can hold pressure with a gauze or cloth over the site for 10 minutes and it will usually stop. If bleeding continues you will need to call for possible evaluation in office or emergency room. 4. Medications: a. _Percocet_ may be taken for pain as needed, one tablets every 6 hours. Stop the narcotic when able since you cannot take it and drive, and they cause constipation. You may switch to plain Tylenol, Advil or Aleve as you transition from the narcotic. Many adults find good pain relief with Advil 600-800 mg three times a day with meals. This can cause indigestion, ulcers, and kidney problems with long-term use. b. You should resume all normal medications unless a change is specified by your doctors. Please take a stool softener, such as colace, with the Percocet. 5. Diet: Begin with clear liquids and may progress to your normal diet if not nauseated. No high fat, high protein foods the day of surgery. 6. The following may occur after laparoscopic surgery: a. Shoulder or upper back ache from retained gas that should resolve in 1-2 days b. Soreness and bruising at incision sites will resolve with time. c. Scrotal swelling (labia in women) and bruising is often seen after hernia surgery. d. Sore throat e. Fatigue may last days to weeks. f. Difficulty urinating may occur and may need to come into emergency room for urinary catheter placement. 7. Notify Physician If: a. Worsening or pain not improved with pain medication b. Persistent nausea and vomiting c. Fever above 101 d. Persistent bleeding or swelling at operative site e. Unable to urinate and uncomfortable bladder 6-8 hours after surgery 8..Follow Up Care: a. Schedule a follow up appointment with your doctor for 2 weeks. In the event of any postoperative problems or questions or you may call the office during business hours or the On-Call physician evenings and weekends at [facility]. [facility] I understand the instructions for my postoperative care as described above and a copy has been given to me. Patient/Significant Other Witness Date Prescriptions: Oxycodone HCl/Acetaminophen [Percocet 5-325 mg Tablet] 1 tab PO ASDIR PRN #20 tab PRN Reason: Referrals: DORETHA ARECHIGA MD [Primary Care Provider] - Discharge Diet: Other (Comments) - clear liquids then progress Discharge Activity: Balance Activity w/Rest, No Lifting Over 10 Pounds, No Lifting/Push/Pulling, Walk Frequently Report the Following to Your Physician Immediately: Vomiting, Increase in Pain, Fever over 101 Degrees, Unusual Bleeding, Redness, Swelling, Warmth, Increased Soreness, Drainage-Foul Smelling
[2018-09-22] MEDS ORDERED: IPRATROPIUM/ALBUTEROL 0.5-2.5 MG/3 ML AMPUL NEB ONE (17:26)
[2018-09-22] MEDS ORDERED: HYDROMORPHONE HCL INJ/PF 2 MG/ML AMPULE ONE (17:26)
--- NOTE | 2018-09-22 17:33 | Operative Report ---
Operative Report DATE OF SURGERY: 09/22/18 PREOPERATIVE DIAGNOSIS: Ventral wall hernia POSTOPERATIVE DIAGNOSIS: Ventral wall hernias x2 one at umbilicus, one supraumbilical. Intra-abdominal adhesions OPERATION: 1 Extensive scopic lysis of adhesions. 2. Ventral wall he rniorrhaphy x2, with ventralite ST mesh 4.5 inch diameter SURGEON: PERICO DECKER 1ST PATRON ATTENDANT: JULIO CRUZ ANESTHESIA: GA TISSUE REMOVED OR ALTERED: Intra-abdominal fat COMPLICATIONS: None ESTIMATED BLOOD LOSS: 150 cc INTRAOPERATIVE FINDINGS: See below PROCEDURE: Patient was seen in the preop holding area where he was evaluated. He was found to have an elevated creatinine close to 3, baseline previously 2; BUN elevated as well; discussion was had with anesthesiologist, as well as Dr. Solorio probation worker. We agreed to proceed with appropriate levels of hydration, and follow-up chronic renal insufficiency with nephrology. Patient was taken to the main operating room where general anesthesia was induced. Arms were abducted, and the abdomen was exposed, prepped and draped in sterile fashion. Surgical plan surgical timeout were conducted. Markings were made on the skin for planned 3 port laparoscopic surgery, left upper quadrant left lower quadrant and right mid lateral field. Skin was anesthetized with 1% lidocaine. A left upper quadrant stab was made with a 15 blade, Veress needle inserted the peritoneal cavity pneumoperitoneum was established. Veress needle was removed, and a 5 mm ports inserted and a 5 mm flexible endoscope was inserted and under direct visualization 2 additional 5 mm ports were placed again one in the left lower quadrant and one in the right mid field Visualization of the peritoneal cavity revealed extensive adhesions between the greater omentum and the anterior abdominal wall. These were taken down using combination of blunt and primarily dissection. Visualization was excellent. There was no evidence of small bowel attached to the anterior abdominal wall. Once all of the adhesions were taken down, including a small portion of the falciform ligament, we are able to appreciate the hernias of the abdominal wall which included to each approximately a centimeter and a half in diameter one at the umbilicus and a second just above the umbilicus. Fat-containing within the supraumbilical hernia was debrided with graspers. We now closed both of the small hernias with a large [id number] #1 PDS suture passed percutaneously by making a small delmis in the skin tween the internal hernias just at the superior edge of the umbilicus, and using the percutaneous needle passer, placing the suture into position. Pneumoperitoneum was decompressed, and the knots secured. We now brought onto the field a non- 4.5 cm mesh, ventral light ST, affixed it with 0 PDS sutures at the 12, 3, 6, 9:00 positions moistened, rolled it up and brought up to the anterior abdominal wall. We can affixing the mesh to the anterior abdominal wall at the 12 and 6:00 positions using the disposable suture passer when it was apparent that there was persisting bleeding coming down from the left lower quadrant port site. What to our surprise, there was a rather generous collection of blood in the peritoneal cavity. It was apparent t hat there was bleeding from our site, likely the inferior epigastric artery. The port in the left lower quadrant was removed, and using three #1 PDS sutures, we were able to ligate the artery and all the mechanical bleeding. We estimate there was approximately 150 cc of blood loss. The blood was aspirated and the peritoneal cavity irrigated and hereafter there was no further bleeding from this port site as it was now closed. We replaced the third port by repositioning it several centimeters cephalad under direct visualization thereby restoring our 3 port access. I will continue to affix the mesh to the anterior abdominal wall using the previously placed sutures and the disposable suture passer. We now placed approximately 18 Sorb Tac sherrell into position. The mesh was secured satisfactorily. Multiple photos were taken. We reinspected the intra-abdominal wall, specifically the oversewn site in the left lower quadrant and there was no evidence of mechanical bleeding. We checked the viscera for any evidence of injury and there was felt to be none. The operation was complete. The patient was leveled out, all irrigant aspirated, ports removed under direct visualization, wounds closed with 3-0 Vicryl benzoin Steri-Strips and 4 x 4's Patient tolerated the procedure well, extubated, taken to recovery room in stable condition. Abdominal binder applied. The physician accountant assistant, Ms. Cano, provided assistance during this case by: Assisting and port insertion, retracting tissue, instillation of local anesthesia and closure of skin incisions.
[2018-09-22] MEDS: FENTANYL CITRATE INJ/PF 100 MCG/2 ML AMPUL ONE ×2 (17:49→17:54)
[2018-09-22] MEDS ORDERED: ONDANSETRON 4 MG TAB.RAPDIS PO PRN (19:16)
[2018-09-22] MEDS ORDERED: DEXTROSE 50%-WATER SYRINGE 12.5 GM/25 ML DOSE IV PRN (19:30)
[2018-09-22] MEDS ORDERED: GLUCAGON,HUMAN RECOMB 1 MG INJ IM PRN (19:30)
[2018-09-22] MEDS ORDERED: DEXTROSE 40% GEL 15 GM TUBE X 2 PO PRN (19:30)
[2018-09-22] MEDS ORDERED: DEXTROSE 50%-WATER SYRINGE 25 GM/50 ML DOSE IV PRN (19:30)
[2018-09-22] MEDS ORDERED: DEXTROSE 40% GEL 15 GM TUBE PO PRN (19:30)
[2018-09-22] MEDS: OXYCODONE-ACETAMINOPHEN 5-325 MG TABLET PO PRN (20:56)
[2018-09-22] MEDS: INSULIN LISPRO 100 UNIT/ML 3 ML VIAL SUBCUT SCH (21:21)
[2018-09-22] MEDS: DOCUSATE SODIUM 100 MG CAPSULE PO SCH (21:22)
[2018-09-22] MEDS ORDERED: LORAZEPAM 1 MG TABLET PO PRN (21:52)
[2018-09-22] MEDS ORDERED: ALBUTEROL SULFATE HFA (90 MCG/PUFF) 200 PUFF/8.5 GM MDI IH PRN (21:52)
[2018-09-22] MEDS ORDERED: ZOLPIDEM TARTRATE 5 MG TABLET PO PRN (21:52)
[2018-09-22] MEDS ORDERED: (PENDING PHARMACY ID) (Oxycodone Hcl/Acetaminophen [Oxycodon-Acetaminophen 7.5-325] 1 EACH PO PRN (21:52)
[2018-09-22] MEDS ORDERED: OXYCODONE-ACETAMINOPHEN 5-325 MG TABLET PO PRN (21:58)
[2018-09-22] MEDS ORDERED: OXYCODONE HCL IR 5 MG TABLET PO PRN (21:59)
[2018-09-22] MEDS ORDERED: METFORMIN HCL 500 MG TABLET PO ONE (23:00)
[2018-09-22] MEDS ORDERED: ATORVASTATIN CALCIUM 20 MG TABLET PO ONE (23:00)
[2018-09-22] MEDS ORDERED: GLIPIZIDE 5 MG TABLET PO ONE (23:00)
[2018-09-22] MEDS ORDERED: CARVEDILOL 12.5 MG TABLET PO ONE (23:00)
[2018-09-23] MEDS: OXYCODONE-ACETAMINOPHEN 5-325 MG TABLET PO PRN ×3 (02:21→13:50)
[2018-09-23] MEDS ORDERED: PANTOPRAZOLE SODIUM 40 MG TABLET.DR PO SCH (06:00)
[2018-09-23] MEDS ORDERED: TAMSULOSIN HCL 0.4 MG CAP.SR.24H PO SCH (08:00)
[2018-09-23 08:06] LABS: ABSOLUTE EOSINOPHILS # (AUTO) 0.1 10^3/uL (0.0-0.6); ABSOLUTE LYMPHOCYTES (AUTO) 1.2 10^3/uL (0.5-4.7); ABSOLUTE MONOCYTES (AUTO) 0.6 10^3/uL (0.1-1.4); ABSOLUTE NEUT (AUTO) 3.8 10^3/uL (1.7-8.2); BASOPHILS % (AUTO) 0.4 % (0-2); EOSINOPHILS % (AUTO) 2.5 % (0-6); HEMATOCRIT 26.7 % (37.9-51.0); LYMPHOCYTES % (AUTO) 20.1 % (13-45); MEAN CORPUSCULAR HEMOGLOBIN 31.5 pg (27.0-33.4); MEAN CORPUSCULAR HGB CONC 34.4 g/dL (32.0-36.0); MEAN CORPUSCULAR VOLUME 91 fl (80-97); MONOCYTES % (AUTO) 10.8 % (3-13); PLATELET COUNT 132 10^3/uL (150-450); RED BLOOD COUNT 2.92 10^6/uL (4.35-5.55); RED CELL DISTRIBUTION WIDTH 13.3 % (11.5-14.0); SEGMENTED NEUTROPHILS % (AUTO) 66.2 % (42-78); TOTAL CELLS COUNTED % (AUTO) 100 %; WHITE BLOOD COUNT 5.8 10^3/uL (4.0-10.5)
[2018-09-23 08:09] LABS: HEMOGLOBIN 9.2 g/dL (13.5-17.0)
[2018-09-23 08:13] LABS: BLOOD UREA NITROGEN 34 mg/dL (7-20); CALCIUM 7.9 mg/dL (8.4-10.2); CARBON DIOXIDE 21 mmol/L (22-30); CHLORIDE 113 mmol/L (98-107); GLUCOSE 124 mg/dL (75-110); POTASSIUM 5.8 mmol/L (3.6-5.0); SODIUM 138.2 mmol/L (137-145)
[2018-09-23 08:17] LABS: ANION GAP 4 (5-19)
[2018-09-23] MEDS: DOCUSATE SODIUM 100 MG CAPSULE PO SCH (09:38)
[2018-09-23] MEDS: INSULIN LISPRO 100 UNIT/ML 3 ML VIAL SUBCUT SCH ×2 (09:44→15:06)
[2018-09-23] MEDS ORDERED: AMLODIPINE BESYLATE 10 MG TABLET PO SCH (10:00)
[2018-09-23] MEDS ORDERED: (PENDING PHARMACY ID) (Lansoprazole [Prevacid] 30 MG) PO SCH (10:00)
[2018-09-23] MEDS ORDERED: GLIPIZIDE 5 MG TABLET PO SCH (10:00)
[2018-09-23] MEDS ORDERED: LORATADINE 10 MG TABLET PO SCH (10:00)
[2018-09-23] MEDS ORDERED: CARVEDILOL 12.5 MG TABLET PO SCH (10:00)
[2018-09-23] MEDS ORDERED: LOSARTAN POTASSIUM 50 MG TABLET PO SCH (10:00)
[2018-09-23] MEDS ORDERED: GLIPIZIDE PO SCH (10:00)
[2018-09-23] MEDS ORDERED: GABAPENTIN 100 MG CAPSULE PO SCH (10:00)
[2018-09-23] MEDS ORDERED: FLUTICASONE NASAL SPRAY 50 MCG/SPRY 120 SPRAY/16 GM NAREB SCH (10:00)
[2018-09-23] MEDS ORDERED: METFORMIN HCL PO SCH (10:00)
[2018-09-23] MEDS ORDERED: CITALOPRAM HYDROBROMIDE 20 MG TABLET PO SCH (10:00)
[2018-09-23] MEDS ORDERED: METFORMIN HCL 500 MG TABLET PO SCH (10:00)
--- NOTE | 2018-09-23 11:37 | PDOC PROGRESS REPORT ---
Subjective Progress Note for:: 09/23/18 Subjective:: complains of abdominal pain, unable to void after scott removed; has gotten up once in ambulate. Pt takes percocet daily for chronic pain. Reason For Visit: K43.9 VENTRAL HERNIA WITHOUT OBSTRUCTION OR GANGRE Physical Exam Vital Signs: Temp Pulse Resp BP Pulse Ox 98.4 F 71 16 117/63 96 09/23/18 07:46 09/23/18 07:46 09/23/18 07:46 09/23/18 07:46 09/23/18 07:46 Intake & Output 09/22/18 09/23/18 09/24/18 06:59 06:59 06:59 Intake Total 2000 Output Total 450 Balance 1550 Weight 97.52 kg General appearance: PRESENT: mild distress GI/Abdominal exam: PRESENT: other - dressing dry, intact; wall tendernes appropriate; no shawna hematoma Results Laboratory Results: 09/23/18 06:54 09/23/18 06:54 09/22/18 09/23/18 09/23/18 13:55 06:54 06:54 WBC 5.8 RBC 2.92 L Hgb 9.2 L D Hct 26.7 L MCV 91 MCH 31.5 MCHC 34.4 RDW 13.3 Plt Count 132 L Seg Neutrophils % 66.2 Lymphocytes % 20.1 Monocytes % 10.8 Eosinophils % 2.5 Basophils % 0.4 Absolute Neutrophils 3.8 Absolute Lymphocytes 1.2 Absolute Monocytes 0.6 Absolute Eosinophils 0.1 Absolute Basophils 0.0 Sodium 138.2 Potassium 5.3 H 5.8 H Chloride 113 H Carbon Dioxide 21 L Anion Gap 4 L BUN 34 H Creatinine 2.97 H Est GFR ( Amer) 26 L Est GFR (Non-Af Amer) 21 L Glucose 124 H Calcium 7.9 L Assessment & Plan - Diagnosis (1) S/P hernia repair Is this a current diagnosis for this admission?: Yes Plan: IMP: Doing reasonably well; pain being managed fairly well; hasn't voided after scott out PLAN: 1. OOB, diet, abdomial binder 2. Explained plans to pt. and for d/c later today if he continues to improve 3. Labs noted; Hb drop 2nd blood loss during surgery and dilution; BUN and Cr. stable (2) COPD (chronic obstructive pulmonary disease) Is this a current diagnosis for this admission?: Yes (3) Adult onset diabetes mellitus with ketoacidosis Is this a current diagnosis for this admission?: Yes (4) CKD (chronic kidney disease) stage 3, GFR 30-59 ml/min Is this a current diagnosis for this admission?: Yes (5) Urinary retention Is this a current diagnosis for this admission?: Yes
[2018-09-23 15:39] VITALS: BP 131/82
[2018-09-23] MEDS ORDERED: DOCUSATE SODIUM 100 MG CAPSULE PO SCH (18:00)
[2018-09-23] MEDS ORDERED: ATORVASTATIN CALCIUM 20 MG TABLET PO SCH (22:00)
== END 2018-09-23 16:02 | disposition home or self-care (01) ==
LOC: OROUT 12:44 → 2N 20:45 → OROUT 09-23 16:02
PROVIDERS: ATTEND Surgery
DX: K43.9 Ventral hernia without obstruction or gangrene (principal); J44.9 Chronic obstructive pulmonary disease, unspecified; B19.20 Unspecified viral hepatitis C without hepatic coma; E78.00 Pure hypercholesterolemia, unspecified; N28.9 Disorder of kidney and ureter, unspecified; R06.02 Shortness of breath; K21.9 Gastro-esophageal reflux disease without esophagitis; F41.9 Anxiety disorder, unspecified; I12.9 Hypertensive chronic kidney disease with stage 1 through stage 4 chronic kidney disease, or unspecified chronic kidney disease; E11.22 Type 2 diabetes mellitus with diabetic chronic kidney disease; N18.3 Chronic kidney disease, stage 3 (moderate); E11.10 Type 2 diabetes mellitus with ketoacidosis without coma; Z01.818 Encounter for other preprocedural examination; R33.9 Retention of urine, unspecified; K66.0 Peritoneal adhesions (postprocedural) (postinfection)
CPT/HCPCS: 93005; 36415 ×2; 82962; 84132; 85025; 85027; 80048 ×2; 93010; 00752; 49652; 49329; C1781; J2250; A9270 ×18; J0690; J3490 ×6; J1100; J1885; J3010 ×2; J2001; J2765; J2710; J1170; J2370; J0330; J2405; J2704; 752; J1815; J7620

== ENCOUNTER → 2019-12-23 | Outpatient (CLI) | payer MEDICARE, MEDICAID | LOC: OD 08:38 | PROVIDERS: ATTEND Physician Assistant Medical | DX: E87.5 Hyperkalemia (principal) | CPT/HCPCS: 36415; 84132 ==

== ENCOUNTER → 2020-01-30 | Outpatient (CLI) | payer MEDICARE, MEDICAID ==
[2020-01-30 11:08] LABS: ALBUMIN 3.8 g/dL (3.5-5.0); ALKALINE PHOSPHATASE 100 U/L (38-126); ANION GAP 13 (5-19); ASPARTATE AMINO TRANSFERASE 24 U/L (17-59); BILIRUBIN,DIRECT 0.1 mg/dL (0.0-0.4); BILIRUBIN,TOTAL 0.3 mg/dL (0.2-1.3); BLOOD UREA NITROGEN 62 mg/dL (7-20); CALCIUM 9.2 mg/dL (8.4-10.2); CARBON DIOXIDE 19 mmol/L (22-30); CHLORIDE 112 mmol/L (98-107); GLUCOSE 240 mg/dL (75-110); POTASSIUM 5.9 mmol/L (3.6-5.0)
[2020-01-30 15:49] LABS: APPEARANCE,URINE CLEAR; BILIRUBIN,URINE NEGATIVE (NEGATIVE); COLOR,URINE YELLOW; GLUCOSE, URINE 50 mg/dL (NEGATIVE); KETONES,URINE NEGATIVE (NEGATIVE); LEUKOCYTE ESTERASE,URINE NEGATIVE (NEGATIVE); NITRITE,URINE NEGATIVE (NEGATIVE); PROTEIN,URINE >=500 mg/dL (NEGATIVE); URINE SPECIFIC GRAVITY 1.014; UROBILINOGEN,URINE NEGATIVE mg/dL (<2.0)
[2020-01-30 15:56] LABS: HEMATOCRIT 29.6 % (37.9-51.0); HEMOGLOBIN 10.3 g/dL (13.5-17.0); MEAN CORPUSCULAR HGB CONC 34.9 g/dL (32.0-36.0); MEAN CORPUSCULAR VOLUME 89 fl (80-97); PLATELET COUNT 162 10^3/uL (150-450); RED BLOOD COUNT 3.33 10^6/uL (4.35-5.55); RED CELL DISTRIBUTION WIDTH 14.4 % (11.5-14.0); WHITE BLOOD COUNT 5.9 10^3/uL (4.0-10.5)
[2020-01-30 16:07] LABS: URINE CREATININE 80.7 mg/dL (22-328)
[2020-01-30 17:11] LABS: UR PRO/CREAT RATIO RESULT 5.9 mg/mg (0.0-0.2); URINE PROTEIN 472.9 mg/dL (<12)
== END ==
LOC: OD 08:52
PROVIDERS: ATTEND Internal Medicine Nephrology
DX: N18.4 Chronic kidney disease, stage 4 (severe) (principal)
CPT/HCPCS: 36415; 80053; 81001; 82306; 82570; 83970; 84156; 85027

== ENCOUNTER 2020-03-26 08:35 | Day surgery (SDC) | payer MEDICAID, MEDICARE ==
[2020-03-22 10:24] LABS: ABSOLUTE EOSINOPHILS # (AUTO) 0.3 10^3/uL (0.0-0.6); ABSOLUTE MONOCYTES (AUTO) 0.4 10^3/uL (0.1-1.4); ABSOLUTE NEUT (AUTO) 2.9 10^3/uL (1.7-8.2); BASOPHILS % (AUTO) 0.7 % (0-2); EOSINOPHILS % (AUTO) 6.8 % (0-6); HEMATOCRIT 24.9 % (37.9-51.0); HEMOGLOBIN 8.7 g/dL (13.5-17.0); LYMPHOCYTES % (AUTO) 20.5 % (13-45); MEAN CORPUSCULAR HEMOGLOBIN 31.3 pg (27.0-33.4); MEAN CORPUSCULAR HGB CONC 34.8 g/dL (32.0-36.0); MEAN CORPUSCULAR VOLUME 90 fl (80-97); MONOCYTES % (AUTO) 9.1 % (3-13); PLATELET COUNT 140 10^3/uL (150-450); RED BLOOD COUNT 2.77 10^6/uL (4.35-5.55); SEGMENTED NEUTROPHILS % (AUTO) 62.9 % (42-78); TOTAL CELLS COUNTED % (AUTO) 100 %; WHITE BLOOD COUNT 4.7 10^3/uL (4.0-10.5)
[2020-03-22 10:47] LABS: ANION GAP 11 (5-19); BLOOD UREA NITROGEN 61 mg/dL (7-20); CALCIUM 8.6 mg/dL (8.4-10.2); CARBON DIOXIDE 23 mmol/L (22-30); CHLORIDE 108 mmol/L (98-107); GLUCOSE 152 mg/dL (75-110); POTASSIUM 5.4 mmol/L (3.6-5.0)
[~2020-03-26 08:35] MED LIST changes: -ACETAMINOPHEN 325 MG TABLET PO PRN; -ALBUTEROL SULFATE 0.083% NEB 2.5 MG/3 ML AMPUL NEB PRN; -CEFAZOLIN 1 GM/D5W RTU 1 GM/50 ML RTUPB IV ONE; -CEFAZOLIN 1 GM/D5W RTU 1 GM/50 ML RTUPB IV PRN; +CEFAZOLIN 2 GM/D5W RTU 2 GM/50 ML RTUPB IV PRN; +FENTANYL CITRATE INJ/PF 100 MCG/2 ML AMPUL ONE; -KETOROLAC TROMETHAMINE 60 MG/2 ML SDV ONE; -LACTATED RINGERS 1000 ML IV PRN; -LIDOCAINE 0.5% INJ-PF (5 MG/ML) 50 ML SDV SUBCUT PRN; -LIDOCAINE 2% INJ-PF (20 MG/ML) 2 ML AMPUL ONE; -METOCLOPRAMIDE HCL INJ/PF 10 MG/2 ML SDV ONE; +MIDAZOLAM 2 MG/2 ML INJ ONE; +NORMAL SALINE 1000 ML (RENAL PATIENTS) IV PRN; -PHENYLEPHRINE HCL INJ/PF 10 MG/1 ML SDV ONE
[2020-03-26] MEDS ORDERED: CEFAZOLIN 2 GM/D5W RTU 2 GM/50 ML RTUPB IV ONE (08:49)
[2020-03-26 09:35] LABS: POTASSIUM 4.9 mmol/L (3.6-5.0)
[2020-03-26] MEDS ORDERED: HEPARIN SOD (PORCINE) 1,000 UNIT/ML 1 ML VIAL ONE (09:48)
[2020-03-26] MEDS ORDERED: MEPERIDINE HCL/PF INJ 25 MG/1 ML DISP.SYRIN IV PRN (11:12)
[2020-03-26] MEDS ORDERED: DIPHENHYDRAMINE HCL 50 MG/ML VIAL IV PRN (11:12)
[2020-03-26] MEDS ORDERED: FENTANYL CITRATE INJ/PF 100 MCG/2 ML AMPUL IV PRN ×3 (11:12)
[2020-03-26] MEDS ORDERED: ONDANSETRON HCL INJ/PF 4 MG/2 ML SDV IV PRN (11:12)
[2020-03-26] MEDS ORDERED: MORPHINE SULFATE 10 MG/ML INJ IV PRN (11:12)
--- NOTE | 2020-03-26 11:35 | RADIOLOGY REPORT (SQ) ---
EXAM DESCRIPTION: FLUORO/CV PLACEMENT IMAGES COMPLETED DATE/TIME: 03/26/2020 11:08 am REASON FOR STUDY: PERMCATH PLCMT RIGHT SIDE ASSISTED WITH FLUORO IN OR N28.9 DISORDER OF KIDNEY AND URETER, UNSPECIFIED Z79.899 OTHER CARE HOME (CURRENT) DRUG THERAPY COMPARISON: None. FLUOROSCOPY TIME: 0.5 minutes Spot images saved to PACS. TECHNIQUE: Intra-operative images acquired during surgical procedure to evaluate progress. NUMBER OF IMAGES: 5 LIMITATIONS: None. FINDINGS: Fluoroscopy was provided for intraoperative procedure. Please refer to the operative repo rt for further discussion. IMPRESSION: IMAGE(S) OBTAINED DURING PROCEDURE. COMMENT: Quality ID [id number]: Final reports for procedures using fluoroscopy that document radiation exp osure indices, or exposure time and number of fluorographic images (if radiation exposure indices are not available) Please consult full operative report of the attending physician for description of the procedure. TECHNICAL DOCUMENTATION: JOB ID: [id number] 2010 [employer]- All Rights Reserved Reading location - IP/workstation name: [email or web address]
--- NOTE | 2020-03-26 12:14 | Operative Report ---
Nonrecallable Operative Report DATE OF SURGERY: 03/26/20 PREOPERATIVE DIAGNOSIS: Renal failure POSTOPERATIVE DIAGNOSIS: Same OPERATION: Permacath placement right internal jugular vein and David fistula left forearm SURGEON: SONAL NG 1ST COLD HEADER OPERATOR: JULIO CRUZ ANESTHESIA: GA TISSUE REMOVED OR ALTERED: None COMPLICATIONS: None INTRAOPERATIVE FINDINGS: 50 cc PROCEDURE: Patient was brought to the operating awake alert stable condition placed on the operating table supine position induced under general anesthesia and intubated. The right neck and left arm were prepped and draped in usual sterile fashion. After appropriate timeout and site verification the procedure commenced. Using ultrasound the right internal jugular vein was visualized and accessed with an 18-gauge needle. Through the needle a wire was placed into the superior vena cava. The serial dilators were placed over the wire and then the dilator introducer combination. A point was picked on the right anterior chest wall just below the clavicle and a small incision was made with a 15 blade the 32 cm curved permacath was then tunneled from that subclavian site to the internal jugular vein stick site. The catheter was then placed into the tear-away introducer which was torn away. Under fluoroscopy it seemed the catheter had a nice gentle curve to it and it flowed and withdrew easily. The skin stick in the neck was closed with 4-0 Vicryl in the subcutaneous tissue and then a Steri-Strip. The catheter was affixed to the right anterior chest with 2 stitches of 3-0 nylon. Sterile dressing was applied. The catheter was then heparinized with heparinized saline solution. Attention was then turned to the left arm. In the left wrist the cephalic vein could be dilated with a tourniquet placed in the upper arm and therefore we elected to utilize the David approach. A longitudinal incision was made over the wrist dissection was carried down through subcutaneous tissue with Bovie cautery.similarly the radial artery was dissected from the surrounding The cephalic vein was then dissected from the surrounding areolar tissue for length approximately 6 cm and slung with Vesseloops. tissue and the deep fascia with sharp dissection for distance about 4 cm. It was also slung with Vesseloops. T The Vesseloops were then placed around both vessels and cinched down a arteriotomy and a venotomy were then made with an 11 blade and extended with Arriaga scissors. Both artery and vein were heparinized with heparinized saline solution. Anastomosis then ensued 1 cm long with a running 6-0 Prolene suture. A termination of this a good thrill could be palpated up the forearm and the cephalic vein and there was good flow into the wrist. The subcutaneous tissue was then reapproximated interrupted 3-0 Vicryl skin was reapproximated intracuticular 4 oh bison Steri-Strips completed the procedure. Estimated blood loss for the entire procedure was less than 50 cc sponge needle counts were correct x2. Patient was then awakened in the operating extubated transferred recovery in stable condition. JEREMI Aguilar was present for the entire procedure for help with wound retraction and wound closure
[2020-03-26] MEDS ORDERED: HYDROCODONE/ACETAMINOPHEN 10-325 MG TABLET PO PRN (12:17)
--- NOTE | 2020-03-26 12:17 | Discharge Summary ---
Discharge Summary (SDC) - Discharge Final Diagnosis: Renal failure Date of Surgery: 03/26/20 Discharge Date: 03/26/20 Forms: ASU Anesthesia D/C Instruction, Discharge POC-Surgical Service Prescriptions: Hydrocodone/Acetaminophen [[place] 10-325 mg Tablet] 1 tab PO Q6HP PRN #10 tablet PRN Reason: Referrals: SONAL NG MD [ACTIVE STAFF] - Discharge Diet: As Tolerated Respiratory Treatments at Home: Deep Breathing/Coughing Discharge Activity: Activity As Tolerated, No Lifting Over 10 Pounds, No tub bath Home Care Assistance: Provided by Family Report the Following to Your Physician Immediately: Shortness of Breath, Increase in Pain, Unusual Bleeding, Redness, IV Site Infection Signs
[2020-03-26] MEDS ORDERED: FENTANYL CITRATE INJ/PF 100 MCG/2 ML AMPUL ONE (12:37)
--- NOTE | 2020-03-26 13:00 | RADIOLOGY REPORT (SQ) ---
EXAM DESCRIPTION: CHEST SINGLE VIEW IMAGES COMPLETED DATE/TIME: 03/26/2020 12:49 pm REASON FOR STUDY: LINE PLACEMENT COMPARISON: 12/02/2015 EXAM PARAMETERS: NUMBER OF VIEWS: One view. TECHNIQUE: Single frontal radiographic view of the chest acquired. RADIATION DOSE: NA LIMITATIONS: None. FINDINGS: LUNGS AND PLEURA: Right-sided dialysis catheter in place. Tip overlies the SVC. No pneum othorax. No consolidation or effusions. MEDIASTINUM AND HILAR STRUCTURES: No masses. Contour normal. HEART AND VASCULAR STRUCTURES: Heart normal in size. Normal vasculature. BONES: No acute findings. HARDWARE: None in the chest. OTHER: No other significant finding. IMPRESSION: No acute findings following right-sided dialysis catheter placement. TECHNICAL DOCUMENTATION: JOB ID: [id number] [employer]- All Rights Reserved Reading location - IP/workstation name: [email or web address]
[2020-03-26] MEDS ORDERED: HYDROCODONE/ACETAMINOPHEN 10-325 MG TABLET ONE (13:45)
[2020-03-26 15:55] VITALS: BP 149/76
== END 2020-03-26 15:00 | disposition home or self-care (01) ==
LOC: OROUT 08:35
PROVIDERS: ATTEND Surgery
DX: E11.22 Type 2 diabetes mellitus with diabetic chronic kidney disease (principal); I12.0 Hypertensive chronic kidney disease with stage 5 chronic kidney disease or end stage renal disease; N18.5 Chronic kidney disease, stage 5; K21.9 Gastro-esophageal reflux disease without esophagitis; Z01.812 Encounter for preprocedural laboratory examination; Z20.822 Contact with and (suspected) exposure to COVID-19; Z87.891 Personal history of nicotine dependence; Z79.899 Other long term (current) drug therapy; E78.00 Pure hypercholesterolemia, unspecified; F41.9 Anxiety disorder, unspecified; M19.90 Unspecified osteoarthritis, unspecified site; Z79.891 Long term (current) use of opiate analgesic
CPT/HCPCS: 36821; 36558; 36415 ×2; 82947; 84132; 85025; 80048; 71045; 77001; U0003; J2250; J3010; J1644; J2405; J2704; J0690; A9270; C9803; 1844; 87635; J0330; J2710; J3490